=== PATIENT | male | born 1990 ===

== ENCOUNTER 2020-11-14 22:55 | Emergency (ER) | payer SELFPAY ==
[~2020-11-14] VITALS: Ht 175.3 cm; Wt 63.5 kg
== END 2020-11-15 01:46 | disposition home or self-care (01) ==
LOC: ER 22:55
DX: R07.81 Pleurodynia (principal); F17.210 Nicotine dependence, cigarettes, uncomplicated
CPT/HCPCS: 71046; 96372; 99284-25; J1885